=== PATIENT | male | born 1960 | race Caucasian/White ===

== ENCOUNTER 2018-12-17 06:27 | Day surgery (SDC) | payer OTHER ==
[~2018-12-17] VITALS: Ht 165.1 cm; Wt 75.5 kg
[~2018-12-17 06:27] MED LIST: GLIPIZIDE; METFORMIN
[2018-12-17 07:22] VITALS: Ht 165.1 cm; Wt 75.5 kg
[2018-12-17 07:44] VITALS: BP 123/76; PULSE 86; RESP 18
[2018-12-17] MEDS ORDERED: FENTAnyl 50 MCG/ML VIAL ONE (08:38)
[2018-12-17] MEDS ORDERED: MIDAZOLAM 1 MG/ML 2 ML INJ ONE ×2 (08:38)
[2018-12-17 08:55] VITALS: BP 120/62; RESP 20
== END 2018-12-17 14:27 | disposition home or self-care (01) ==
LOC: GIL 06:27
PROVIDERS: ATTEND Internal Medicine Gastroenterology
DX: Z12.11 Encounter for screening for malignant neoplasm of colon (principal); D12.3 Benign neoplasm of transverse colon; K64.4 Residual hemorrhoidal skin tags; F17.200 Nicotine dependence, unspecified, uncomplicated; E11.9 Type 2 diabetes mellitus without complications
CPT/HCPCS: 45385; 82962; 88305; J2250; J3010; Z7610